=== PATIENT | female | born 1965 | race Caucasian/White ===

== ENCOUNTER → 2016-10-11 | Outpatient (CLI) | payer OTHER ==
[~2016-10-11] MED LIST: TRAMADOL HCL50 MG PO
== END ==
LOC: KOH-I 10:36
DX: R76.11 Nonspecific reaction to tuberculin skin test without active tuberculosis (principal)
CPT/HCPCS: 71020

== ENCOUNTER → 2020-07-11 | Outpatient (CLI) | payer OTHER ==
[~2020-07-11] MED LIST changes: +BACTRIM DS TAB1 EACH PO; +CEFUROXIME500 MG PO; +MEDROL4 MG PO; +PROVENTIL HFA6.7 GM INH
== END ==
LOC: KOH-I 06-30 13:00
DX: Z12.2 Encounter for screening for malignant neoplasm of respiratory organs (principal); F17.210 Nicotine dependence, cigarettes, uncomplicated; R91.8 Other nonspecific abnormal finding of lung field
CPT/HCPCS: 71271

== ENCOUNTER → 2021-01-24 | Outpatient (CLI) | payer OTHER | LOC: KOH-I 01-17 11:00 | DX: M51.16 Intervertebral disc disorders with radiculopathy, lumbar region (principal); M48.061 Spinal stenosis, lumbar region without neurogenic claudication; M47.26 Other spondylosis with radiculopathy, lumbar region | CPT/HCPCS: 72148 ==

== ENCOUNTER → 2021-05-21 | Outpatient (CLI) | payer OTHER | LOC: EXRD 14:29 | DX: M54.50 Low back pain, unspecified (principal); G89.29 Other chronic pain; R10.9 Unspecified abdominal pain; M47.816 Spondylosis without myelopathy or radiculopathy, lumbar region; K59.00 Constipation, unspecified; N20.0 Calculus of kidney | CPT/HCPCS: 72100; 74018 ==

== ENCOUNTER → 2021-08-23 | Outpatient (CLI) | payer OTHER | LOC: EXRD 10:26 | DX: R05.9 Cough, unspecified (principal) | CPT/HCPCS: 71046 ==

== ENCOUNTER → 2021-09-06 | Outpatient (CLI) | payer OTHER | LOC: KOH-I 10:00 | DX: F17.210 Nicotine dependence, cigarettes, uncomplicated (principal); R91.1 Solitary pulmonary nodule; N28.9 Disorder of kidney and ureter, unspecified | CPT/HCPCS: 71271 ==

== ENCOUNTER → 2021-09-26 | Outpatient (CLI) | payer OTHER | LOC: CT 12:25 | DX: N28.9 Disorder of kidney and ureter, unspecified (principal); R91.8 Other nonspecific abnormal finding of lung field; N20.0 Calculus of kidney | CPT/HCPCS: 74150 ==